=== PATIENT | female | born 1970 | race Caucasian/White ===

== ENCOUNTER 2019-06-14 06:05 | Inpatient (IN) ==
[2019-06-14] MEDS ORDERED: CeFAZolin Syr 2,000MG/20 ML 2,000 MG/20 ML SYRINGE IVPB ONE (06:23)
[2019-06-14] MEDS ORDERED: Albuterol 2.5 MG/3 ML NEBULIZER IH PRN (06:23)
[2019-06-14] MEDS ORDERED: *HR* OxyCODONE Immed Rel 5 MG TABLET PO PRN (06:25)
[2019-06-14] MEDS ORDERED: *HR* Promethazine 25 MG/ML VIAL IVP PRN (06:25)
[2019-06-14] MEDS ORDERED: Ringers Solution, Lactated 1,000 ML IVC SCH ×2 (06:30)
[2019-06-14] MEDS ORDERED: *HR* Propofol 200 MG/20 ML VIAL IVP ONE (07:18)
[2019-06-14] MEDS ORDERED: Ondansetron 4 MG/2 ML VIAL ONE (07:18)
[2019-06-14] MEDS ORDERED: *HR* FentaNYL (PF) 100 MCG/2 ML VIAL ONE (07:18)
[2019-06-14] MEDS ORDERED: *HR* Rocuronium Bromide 50 MG/5 ML VIAL ONE ×2 (07:18→08:50)
[2019-06-14] MEDS ORDERED: Dexamethasone 4 MG/ML VIAL ONE ×2 (07:18)
[2019-06-14] MEDS ORDERED: Lidocaine -MPF 2% 2 ML VIAL ONE (07:18)
[2019-06-14] MEDS ORDERED: *HR* Midazolam HCl 2 MG/2 ML VIAL ONE (07:18)
[2019-06-14] MEDS ORDERED: Lidocaine -MPF 4% 5 ML AMPUL ONE (07:18)
[2019-06-14] MEDS ORDERED: *HR* HYDROMORPHONE 2 MG/ML VIAL ONE (08:36)
[2019-06-14] MEDS ORDERED: Neostigmine Methylsulfate 3 MG/3 ML SYRINGE ONE (11:25)
[2019-06-14] MEDS ORDERED: Naloxone 0.4 MG/ML INJ IVP PRN (11:33)
[2019-06-14] MEDS ORDERED: Ondansetron 4 MG/2 ML VIAL IVP PRN (11:33)
[2019-06-14] MEDS: *HR* HYDROmorphone (PF) 1 MG/ML SYRINGE IVP PRN ×4 (11:52→12:15)
[2019-06-14] MEDS: Ketorolac 30 MG/ML VIAL IVP SCH ×2 (12:46→17:19)
[2019-06-14] MEDS ORDERED: Acetaminophen IV 1,000 MG/100 ML INFUS..BTL ONE (12:55)
[2019-06-14] MEDS: Acetaminophen IV 1,000 MG/100 ML INFUS..BTL IVPB SCH ×2 (12:58→17:55)
[2019-06-14] MEDS: *HR* Heparin 5,000 UNIT/ML VIAL SQ SCH ×2 (14:53→16:31)
[2019-06-14] MEDS: D5% in 0.45% NACL w KCl 20 MEQ/1,000 ML MLS IVC SCH (16:30)
[2019-06-15] MEDS: Acetaminophen IV 1,000 MG/100 ML INFUS..BTL IVPB SCH ×2 (00:19→05:40)
[2019-06-15] MEDS: Ketorolac 30 MG/ML VIAL IVP SCH ×2 (00:20→05:40)
[2019-06-15] MEDS: *HR* Heparin 5,000 UNIT/ML VIAL SQ SCH ×2 (00:20→09:52)
[2019-06-15] MEDS: D5% in 0.45% NACL w KCl 20 MEQ/1,000 ML MLS IVC SCH (04:06)
[2019-06-15 05:11] LABS: Basophils % 0.2 %; Eosinophils # 0.1 K/mcL (0.0-0.6); Eosinophils % 0.4 %; Hematocrit 36.9 % (35.3-44.9); Immature Granulocytes % 0.3 % (0-4); Lymphocytes # 3.2 K/mcL (0.6-4.6); Lymphocytes % 24.7 %; Mean Corpuscular HGB Conc 33.6 g/dL (31.6-35.5); Mean Corpuscular Hemoglobin 33.5 pg (28.0-33.3); Mean Corpuscular Volume 99.7 fL (83.0-100.0); Mean Platelet Volume 10.3 fL (9.4-12.4); Monocytes # 1.3 K/mcL (0.0-1.3); Monocytes % 10.4 %; Neutrophils # 8.2 K/mcL (1.6-8.9); Platelet Count 253 K/mcL (140-400); Red Cell Distribution Width 13.2 % (11.5-14.5); White Blood Count 12.8 K/mcL (4.3-11.1)
[2019-06-15 05:17] LABS: Hemoglobin 12.4 g/dL (11.5-15.4)
[2019-06-15 05:49] LABS: eGFR For African Americans > 60 (> 60); eGFR For Non-African Americans > 60 (> 60)
[2019-06-15 07:00] VITALS: BP 113/65
== END 2019-06-15 12:17 | disposition home or self-care (01) | DRG 748 ==
LOC: SAMDAY 06:05 → 3ANU 14:27
PROVIDERS: ADMIT Urology; ATTEND Urology